=== PATIENT | female | born 1985 | race Caucasian/White ===

== ENCOUNTER → 2024-04-30 | Outpatient (CLI) | payer OTHER, MEDICAID, SELFPAY ==
[2024-04-30 10:43] LABS: Quantiferon-TB* See Sep Rpt
[2024-04-30 10:52] LABS: Collection Type, Urine Clean Catch
[2024-04-30 11:25] LABS: Basophils % (Auto) 1 % (0-2.5); Eosinophils # (Auto) 0.1 Thou/mm3 (0.0-0.5); Eosinophils % (Auto) 2 % (0-10); Hemoglobin 15.2 g/dL (12.0-16.0); Immature Granulocytes % (Auto) 1 % (0-0); Immature Granulocytes Auto 0.03 Thou/mm3 (0.00-0.00); Lymphocytes # (Auto) 1.6 Thou/mm3 (1.0-4.8); Lymphocytes % (Auto) 29 % (10-50); Mean Corpuscular HGB Conc 33.8 g/dl (31.0-37.0); Mean Corpuscular Hemoglobin 31.4 pg (25.0-35.0); Mean Corpuscular Volume 93 fL (80-100); Monocytes # (Auto) 0.3 Thou/mm3 (0.0-0.8); Monocytes % (Auto) 6 % (0-12); Neutrophils # (Auto) 3.3 Thou/mm3 (1.8-7.7); Neutrophils % (Auto) 62 % (37-80); Nucleated Red Blood Cell % 0 /100 WBC (0); Platelet Count 295 Thou/mm3 (140-440); RDW Standard Deviation 43.8 fL (36.4-46.3); Red Blood Count 4.84 Miln/mm3 (4.00-5.20); White Blood Count 5.4 Thou/mm3 (3.6-11.0)
[2024-04-30 11:44] LABS: Amorphous Crystals,Urine Present (Absent); Bacteria,Urine Rare; Bilirubin,Urine Negative (Negative); Blood,Urine Negative (Negative); Clarity,Urine Clear (Clear/Hazy); Color,Urine Lt-Yellow (Lt Yel-Yel); Glucose, Urine Negative (Negative); Ketones,Urine Negative (Negative); Leukocyte Esterase,Urine Negative (Negative); Nitrite,Urine Negative (Negative); PH,Urine 7.5 (5.0-7.0); Protein,Urine Negative (Neg - Trace); RBC,Urine 1 /hpf (0-3); Specific Gravity,Urine 1.012 (1.001-1.035); Squamous Epithelial Cell,Urine 2 /hpf (0-5); Urobilinogen,Urine Negative mg/dL (0.0-1.0); WBC,Urine < 1 /hpf (0-5)
[2024-04-30 12:13] LABS: Alanine Aminotransferase 36 U/L (10-49); Albumin, Serum 4.6 gm/dL (3.5-5.0); Alkaline Phosphatase 81 U/L (46-116); Anion Gap 9 (7-16); Aspartate Amino Transferase 20 U/L (0-34); BUN/Creatinine Ratio 13 Ratio (12-20); Bilirubin,Total 0.7 mg/dL (0.3-1.2); Blood Urea Nitrogen 10 mg/dL (9-23); C-Reactive Protein < 0.5 mg/dL (0.0-0.9); Calcium 9.8 mg/dL (8.3-10.6); Calcium (Corrected) 9.8 mg/dL (8.5-10.1); Carbon Dioxide 29.3 mMol/L (20.0-31.0); Chloride 102 mMol/L (98-107); Creatinine (Component) 0.8 mg/dL (0.6-1.3); Globulin 2.3 gm/dL (2.3-3.5); Glucose 87 mg/dL (74-106); Osmolality,Calculated 277 (275-295); Potassium 4.6 mMol/L (3.4-5.1); Sodium 140 mMol/L (136-145); Total Protein 6.9 gm/dL (5.7-8.2); eGFR > 60 See Note
[2024-04-30 12:31] LABS: Sed Rate (ESR) 2 mm/hr (0-20)
[2024-05-06 07:21] LABS: Complement Component C3* 123 mg/dL (83-193); Complement Component C4c* 24 mg/dL (15-57); DNA (ds) Antibody* 2 IU/mL
== END | disposition home or self-care (01) ==
LOC: COPL 10:26
PROVIDERS: PCP Internal Medicine; Referring Provider Internal Medicine; Visit Provider Internal Medicine
DX: M32.9 Systemic lupus erythematosus, unspecified (principal); Z11.1 Encounter for screening for respiratory tuberculosis
CPT/HCPCS: 36415; 80053; 81001; 85025; 85652; 86140; 86160; 86225; 86480

== ENCOUNTER 2024-06-18 17:25 | Emergency (ER) | payer OTHER, MEDICAID, SELFPAY ==
[2024-06-18 17:28] VITALS: BMI 31.6
[2024-06-18 17:42] VITALS: BP 113/79; PULSE 86; RESP 18; TEMP 36.9; O2SAT 99
--- NOTE | 2024-06-18 18:05 | PD.EDWOUND ---
ED Wound/Laceration-RME/HPI General Chief Complaint: Wound/Laceration Stated Complaint: laceration to finger Source: patient Arrival date/time: 06/18/24 17:25 39-year-old female with no known medical history presents to the emergency room with a chief complaint of a laceration to her left index finger. Mode of arrival: ambulatory Limitations: no limitations Related Data Home Medications ?Medication ?Instructions ?Recorded ?Confirmed cholecalciferol (vitamin D3) 125 5,000 unit PO QWEEK 04/30/18 05/01/18 mcg (5,000 unit) tablet (Vitamin D3) hydroxychloroquine 200 mg tablet 400 mg PO QDAY 04/30/18 05/01/18 (Plaquenil) metoprolol tartrate 50 mg tablet 50 mg PO QDAY 04/30/18 05/01/18 naproxen sodium 220 mg capsule 220 mg PO BID PRN Pain 05/01/18 05/01/18 (Aleve) Previous Rx's ?Medication ?Instructions ?Recorded baclofen 20 mg tablet 20 mg PO BID #30 tabs 03/18/21 naproxen 375 mg tablet 375 mg PO QAM PRN pain #60 tabs 03/18/21 Allergies Allergy/AdvReac Type Severity Reaction Status Date / Time ciprofloxacin Allergy Intermediate RASH, Verified 03/18/21 21:21 CHEST PAIN Sulfa (Sulfonamide Allergy Mild BLISTER,DIFFICULTY Verified 03/18/21 21:21 Antibiotics) BREATHING morphine Allergy Unknown Rash, Verified 03/18/21 21:21 anxiety, short of breath phentolamine Allergy increased Verified 03/18/21 21:21 heart rate sulfamethoxazole (From Allergy Rash, Verified 03/18/21 21:21 Bactrim) chest pressure, difficulty breathing trimethoprim (From Bactrim) Allergy Rash, Verified 03/18/21 21:21 chest pressure, difficulty breathing hydrocodone AdvReac Mild Vomiting Verified 03/18/21 21:21 Review of Systems Review of Systems Systems Reviewed: All systems reviewed, normal except as documented Constitutional Constitutional: Reports system reviewed and no additional complaints, except as documented, Denies fatigue, Denies fever(s), Denies headache(s) and Denies weakness Eyes Eyes: Reports system reviewed and no additional complaints, except as documented, Denies blurry vision and Denies change in vision ENT Ears, Nose, Mouth, and Throat: Reports system reviewed and no additional complaints, except as documented, Denies otalgia, Denies headache(s), Denies nasal congestion, Denies throat swelling and Denies vertigo Cardiovascular Cardiovascular: Reports system reviewed and no additional complaints, except as documented, Denies chest pain, Denies dyspnea and Denies dyspnea on exertion Respiratory Respiratory: Reports system reviewed and no additional complaints, except as documented, Denies chest congestion, Denies cough, Denies dyspnea, Denies dyspnea on exertion and Denies wheezing Gastrointestinal Gastrointestinal: Reports system reviewed and no additional complaints, except as documented, Denies abdominal pain, Denies cramping, Denies nausea and Denies vomiting Genitourinary Genitourinary: Reports system reviewed and no additional complaints, except as documented Musculoskeletal Musculoskeletal: Reports system reviewed and no additional complaints, except as documented and Denies back pain Integumentary/Breasts Skin/Breast: Reports system reviewed and no additional complaints, except as documented and Reports wounds Neurologic Neurologic: Reports system reviewed and no additional complaints, except as documented, Denies confusion, Denies headache(s), Denies lack of coordination, Denies vertigo and Denies weakness Psychiatric Psychiatric: Reports system reviewed and no additional complaints, except as documented, Denies anxiety, Denies confusion, Denies depression, Denies paranoia, Denies suicidal ideation and Denies tactile hallucinations Endocrine Endocrine: Reports system reviewed and no additional complaints, except as documented and Denies fatigue Hematologic/Lymphatic Hematologic/Lymphatic: Reports system reviewed and no additional complaints, except as documented and Denies lymphadenopathy Allergic/Immunologic Allergic/Immunologic: Reports system reviewed and no additional complaints, except as documented, Denies throat swelling, Denies urticaria and Denies wheezing ED Exam General Limitations: Present no limitations General appearance: Present alert and in no apparent distress Head Head exam: Present atraumatic Eye Eye exam: Present normal appearance, PERRL and EOMI ENT ENT exam: Present normal exam, normal oropharynx and mucous membranes moist Neck Neck exam: Present normal inspection, full ROM and trachea midline Chest Chest inspection: Present normal inspection and symmetric chest wall rise Respiratory Respiratory exam: Present normal lung sounds bilaterally Cardiovascular Cardiovascular exam: Present regular rate, normal rhythm and normal heart sounds Abdominal Exam Abdominal exam: Present soft and normal bowel sounds Extremities Exam Extremities exam: Present normal inspection and full ROM Expanded Upper Extremity Exam Shoulder exam: Present normal inspection Arm exam: Present normal inspection Elbow exam: Present normal inspection Forearm/Wrist exam: Present normal inspection Hand exam: Present tenderness, laceration and erythema Hand L/R front image:  1. laceration (2.5 cm irregular laceration to the left index finger) Back Exam Back exam: Present normal inspection and full ROM Neurological Exam Neurological exam: Present alert, oriented X3 and CN II-XII intact Psychiatric Psychiatric exam: Present normal affect and normal mood Skin Skin exam: Present warm, dry, intact and normal color Course Quality Measures none Orders Category Date Time Status Set Up Suture Tray STAT Care 06/18/24 18:05 Completed Wound Care NOW Care 06/18/24 18:05 Completed Lidocaine 1% 20 ml [Xylocaine 1% 20 ML] Med 06/18/24 18:05 Discontinued 20 ml INFL X1 ONE Vital Signs Vital signs: Vital Signs Temperature 98.5 F 06/18/24 17:42 Pulse Rate 86 06/18/24 17:42 Respiratory Rate 18 06/18/24 17:42 Blood Pressure 113/79 06/18/24 17:42 Pulse Oximetry (%) 99 06/18/24 17:42 Oxygen Delivery Method Room Air 06/18/24 17:42 O2 saturation 99% within normal limits Procedures -ED Laceration Laceration 1: Site: hand Side (If applicable): left Size (cm): 3 Description: linear, flap and irregular Depth: simple, single layer Local Anesthetic: lidocaine 1% Amount of anesthesia used (mL): 4 Pre-repair: irrigated extensively Skin layer closed with: nylon Size (cm): 5-0 Number of sutures: 5 Technique: simple, interrupted Wound / Laceration MDM Narrative MDM Narrative:: 39-year-old female with no known medical history presents to the emergency room with a chief complaint of a laceration to her left index finger. Patient is hemodynamically stable and in no apparent distress. Patient has a irregular 3 cm laceration to the left tip of her index finger. The laceration occured 1 hour ago while the patient was opening up a box. The mechanism of injury was cutting it with a box Sensation is intact. There is full ROM. There is no exposed tendons. No foreign bodies. Lidocaine 1% was used for anesthesia. The wound was irrigated extensively with normal saline. 5 sutures were placed. A dressing was placed. There were no complications. Patient was educated to keep the area clean and dry for 24 hours, then clean daily with soap and water. Patient was educated to return for any signs of infection including swelling pain redness pus or fever and to make an appointment with primary care provider in 48 hours. Patient was educated to follow up with primary or return to emergency room for suture removal in the next 7-10 days. Patient data External records reviewed:: [facility] previous records Clinical information provided by:: patient Social determinants that could affect healthcare access:: none Patient has the following chronic illnesses:: No chronic illness How is presenting disease/condition affected by chronic disease/condition?: no chronic disease Evaluation data The following diagnostics were reviewed and interpreted by me:: lab results and radiology exam(s) Lab and/or radiology exams considered but not ordered:: Labs and radiology exams considered and ordered Interpretation Summary: N/A Medications / Prescriptions Medications or Prescriptions considered but not ordered:: Medication given Medication administrations:: Medication Administration History Discontinued Medications Lidocaine HCl (Lidocaine Hcl 1% 20 Ml Vial) 20 ml INFL X1 ONE Stop: 06/18/24 18:06 Last Admin: 06/18/24 18:17 Dose: 20 ml Documented By: Medication given Consultations Consultation(s) initiated? (list below): No Diagnosis Wound Differential Diagnosis: laceration, abscess, abrasion and avulsion of skin Most likely diagnosis given after review of the tests above:: Laceration Admission Indicated Admission indicated?: not indicated Admission Request Was there a request for admission?: No Disposition Plan Disposition Plan: Discharge Discharge Attestation Discharge Attestation: The patient and all family members were given an opportunity to ask questions and understood the discharge instructions. Discharge instructions specifically effects, indications for sooner follow up or return to the emergency department, and the expected course of current diagnosis. Patient condition: Stable Discharge Plan Plan Patient Disposition: HOME (Self Care) Discharge Disposition comment: Stable Prescriptions/Referrals Prescriptions/Med Rec: No Action hydroxychloroquine [Plaquenil] 200 mg Tablet 400 mg PO QDAY cholecalciferol (vitamin D3) [Vitamin D3] 5,000 unit Tablet 5,000 unit PO QWEEK metoprolol tartrate 50 mg Tablet 50 mg PO QDAY naproxen sodium [Aleve] 220 mg Capsule 220 mg PO BID PRN (Reason: Pain) naproxen 375 mg tablet 375 mg PO QAM PRN (Reason: pain) Qty: 60 0RF baclofen 20 mg tablet 20 mg PO BID Qty: 30 0RF Referrals: Beck Upton MD [Primary Care Provider] - In 1 week Problem List Clinical Impression: Laceration Patient/Caregiver Discharge Instructions Additional Instructions: Please follow-up with your primary care provider in the next 24 to 48 hours For any evidence of worsening signs or symptoms return to the emergency room immediately Print Language: Djiboutian Stand Alone Forms: Bettye Award Info., Patient Portal Info Letter PA/WEATHERIZATION AND HOUSING INSPECTOR Supervising Physician PA/WEATHERIZATION AND HOUSING INSPECTOR Supervising Physician: Dr. Mauricio
[2024-06-18] MEDS: LIDOCAINE HCL 1% 20 ML VIAL INFL (18:17)
== END 2024-06-18 18:18 | disposition home or self-care (01) ==
PROVIDERS: Emergency Provider Podiatrist Foot & Ankle Surgery; PCP Internal Medicine
DX: S61.211A Laceration without foreign body of left index finger without damage to nail, initial encounter (principal); W45.8XXA Other foreign body or object entering through skin, initial encounter
CPT/HCPCS: 12002; 99283; J3490

== ENCOUNTER 2024-07-21 11:34 | Emergency (ER) | payer OTHER, MEDICAID, SELFPAY ==
[2024-07-21 11:35] VITALS: BMI 32.2
[2024-07-21 11:43] VITALS: BP 119/81; PULSE 102; RESP 18; TEMP 37.3; O2SAT 97
--- NOTE | 2024-07-21 11:57 | XR_ITS ---
Examination: CT abdomen and pelvis without contrast. Coronal 3-D reconstructions. Sagittal 2-D reconstructions. Date and time of exam:July 21, 2024 1320 hours Comparison February 06, 2023 INDICATIONS: Left-sided flank pain with burning sensation with urination today CTDI: vol (mGy): 10.8 DLP: (mGycm): 637 Technique: Axial images of the abdomen have been obtained, 3 mm slice thickness Intravenous contrast material has not been administered. Low dose protocols were performed. One or more of the following dose reduction techniques were used; automated exposure control, adjustment of the mA and/or KV according to patient size, use of iterative reconstruction technique. Findings: No focal liver or splenic lesions Absent gallbladder No pancreatic or adrenal mass Mild wall thickening pelvicalyceal systems and proximal ureters bilaterally, no renal or ureteral calculi, no hydronephrosis No pericecal inflammatory change No pelvic mass No bladder mass or bladder calculi Osseous structures are intact IMPRESSION: Suspicious for bilateral urinary tract infection
--- NOTE | 2024-07-21 11:59 | PD.EDABDPN ---
ED Abdominal Pain RME/HPI General Chief Complaint: Abdominal Pain Stated complaint: LEFT FLANK PAIN FOR 2 WEEKS Time seen by provider: 07/21/24 11:46 Arrival date/time: 07/21/24 11:34 Limitations: no limitations RME / HPI RME / HPI narrative: 39-year-old female here for left flank pain x 2 weeks. States thinks it might be another stone. The last time she had a scan was in 2020. States has been using oregano treatments and hydrating but not working. No fever. Feels lots of pressure on her abdomen that radiates up to her left flank. Multiple drug allergies including ciprofloxacin and Bactrim. No visible clots or hematuria. Some nausea no diarrhea. No history of diabetes hypertension or otherwise immunocompromised state Related Data Home Medications ?Medication ?Instructions ?Recorded ?Confirmed cholecalciferol (vitamin D3) 125 5,000 unit PO QWEEK 04/30/18 05/01/18 mcg (5,000 unit) tablet (Vitamin D3) hydroxychloroquine 200 mg tablet 400 mg PO QDAY 04/30/18 05/01/18 (Plaquenil) metoprolol tartrate 50 mg tablet 50 mg PO QDAY 04/30/18 05/01/18 naproxen sodium 220 mg capsule 220 mg PO BID PRN Pain 05/01/18 05/01/18 (Aleve) Previous Rx's ?Medication ?Instructions ?Recorded baclofen 20 mg tablet 20 mg PO BID #30 tabs 03/18/21 naproxen 375 mg tablet 375 mg PO QAM PRN pain #60 tabs 03/18/21 hydrocodone 5 mg-acetaminophen 325 1 tab PO BID PRN pain 7 days #14 07/21/24 mg tablet tabs nitrofurantoin macrocrystal 100 mg 100 mg PO Q12H #14 caps 07/21/24 capsule Allergies Allergy/AdvReac Type Severity Reaction Status Date / Time ciprofloxacin Allergy Severe RASH, Verified 07/21/24 11:38 CHEST PAIN morphine Allergy Severe Rash, Verified 07/21/24 11:38 anxiety, short of breath phentolamine Allergy Severe increased Verified 07/21/24 11:38 heart rate sulfamethoxazole (From Allergy Severe Rash, Verified 07/21/24 11:38 Bactrim) chest pressure, difficulty breathing trimethoprim (From Bactrim) Allergy Severe Rash, Verified 07/21/24 11:38 chest pressure, difficulty breathing hydrocodone AdvReac Severe Vomiting Verified 07/21/24 11:38 Review of Systems Review of Systems Systems Reviewed: All systems reviewed, normal except as documented Constitutional Constitutional: Reports chills and Denies fever(s) Cardiovascular Cardiovascular: Denies chest pain and Denies dyspnea Respiratory Respiratory: Denies dyspnea Gastrointestinal Gastrointestinal: Reports as per HPI Genitourinary Genitourinary: Reports as per HPI ED Exam General Limitations: Present no limitations General appearance: Present alert and in no apparent distress Eye Eye exam: Present normal appearance, PERRL and EOMI Respiratory Respiratory exam: Present normal lung sounds bilaterally Cardiovascular Cardiovascular exam: Present regular rate, normal rhythm and normal heart sounds Abdominal Exam Abdominal exam: Present soft, tenderness (Suprapubic TTP, left CVAT) and normal bowel sounds Extremities Exam Extremities exam: Present normal inspection and full ROM Back Exam Back exam: Present normal inspection and full ROM Psychiatric Psychiatric exam: Present normal affect and normal mood Skin Skin exam: Present warm, dry, intact and normal color Course Course Course Narrative: Patient remained stable throughout her stay pain was controlled with 1 dose of Toradol. Agreed to IM Rocephin. However for home given degree of pain sent home on [place] listed as causing nausea but has nausea medication at home, not a true drug allergy Quality Measures none Orders Category Date Time Status CT abdomen pelvis wo con Stat Exams 07/21/24 11:57 Completed CBC Stat Lab 07/21/24 12:08 Completed CMP [Comprehensive Metabolic Panel] Stat Lab 07/21/24 12:08 Completed HCG,Qualitative Serum Stat Lab 07/21/24 12:08 Completed Lipase Stat Lab 07/21/24 12:08 Completed UA [Urinalysis] Stat Lab 07/21/24 12:34 Completed Ketorolac Inj [Toradol Inj] Med 07/21/24 11:57 Discontinued 30 mg IVP X1 ONE Sodium Chloride 0.9% 1000 ml [Ns] 1,000 ml Med 07/21/24 11:57 Discontinued IV 999 mls/hr [id number] [Rocephin] 1,000 mg Med 07/21/24 14:28 Discontinued Lidocaine 1% 20 ml [Xylocaine 1% 20 ML] 2.1 ml IM X1 Vital Signs Vital signs: Vital Signs Temperature 99.1 F 07/21/24 11:43 Pulse Rate 102 H 07/21/24 11:43 Respiratory Rate 18 07/21/24 11:43 Blood Pressure 119/81 07/21/24 11:43 Pulse Oximetry (%) 97 07/21/24 11:43 Oxygen Delivery Method Room Air 07/21/24 11:43 Abdominal Pain MDM MDM Narrative MDM Narrative:: 39-year-old patient worked up for possible new kidney stones. However workup showed UTI CT was normal without stones. Given degree of pain and radiating to the flank diagnosed as pyelonephritis. Advise follow-up with PCP return to ER symptoms worsen Patient data External records reviewed:: [facility] previous records Clinical information provided by:: patient Social determinants that could affect healthcare access:: other (specify) (Working long hours difficult to follow-up with PCP) Patient has the following chronic illnesses:: Kidney stones How is presenting disease/condition affected by chronic disease/condition?: exacerbated by Evaluation data The following diagnostics were reviewed and interpreted by me:: lab results and radiology exam(s) Lab and/or radiology exams considered but not ordered:: All imaging considered was ordered Interpretation Summary: CBC CMP within normal limits UA shows signs of UTI, CT scan without stones but confirmed UTI Medications / Prescriptions Medications or Prescriptions considered but not ordered:: All medications considered were given other than Pyridium, patient has other medications at home to help with urgency Medication administrations:: Medication Administration History Discontinued Medications Ceftriaxone Sodium 1,000 mg/ (Lidocaine HCl 2.1 ml) 0 mg IM X1 ONE Stop: 07/21/24 14:29 Last Admin: 07/21/24 14:43 Dose: 1,000 mg Documented By: Sodium Chloride (Ns) 1,000 mls @ 999 mls/hr IV .Q1H1M ONE Stop: 07/21/24 12:57 Last Infusion: 07/21/24 14:24 Dose: Infused Documented By: Admin: 07/21/24 12:51 Dose: 999 mls/hr Documented By: AKASH Ketorolac Tromethamine (Ketorolac Inj 30 Mg/Ml Vial) 30 mg IVP X1 ONE Stop: 07/21/24 11:58 Last Admin: 07/21/24 12:50 Dose: 30 mg Documented By: AKASH See above prescription for Macrobid and [place] sent to Consultations Consultation(s) initiated? (list below): No Diagnosis Differential diagnosis abdominal pain: abdominal pain, calculus of kidney, pancreatitis and other (UTI, pyelonephritis) Most likely diagnosis given after review of the tests above:: Pyelonephritis History of kidney stones Admission Indicated Admission indicated?: not indicated Admission Request Was there a request for admission?: No Disposition Plan Disposition Plan: Discharge Discharge Attestation Discharge Attestation: The patient and all family members were given an opportunity to ask questions and understood the discharge instructions. Discharge instructions specifically effects, indications for sooner follow up or return to the emergency department, and the expected course of current diagnosis. Patient condition: Stable Discharge Plan Plan Patient Disposition: HOME (Self Care) Discharge Disposition comment: f/u with pcp in 2-3days Prescriptions/Referrals Prescriptions/Med Rec: New hydrocodone-acetaminophen 5-325 mg tablet 1 tab PO BID MDD 2 PRN (Reason: pain) 7 Days Qty: 14 0RF nitrofurantoin macrocrystal 100 mg capsule 100 mg PO Q12H Qty: 14 0RF Rx Instructions: must administer with a meal/food No Action hydroxychloroquine [Plaquenil] 200 mg Tablet 400 mg PO QDAY cholecalciferol (vitamin D3) [Vitamin D3] 5,000 unit Tablet 5,000 unit PO QWEEK metoprolol tartrate 50 mg Tablet 50 mg PO QDAY naproxen sodium [Aleve] 220 mg Capsule 220 mg PO BID PRN (Reason: Pain) naproxen 375 mg tablet 375 mg PO QAM PRN (Reason: pain) Qty: 60 0RF baclofen 20 mg tablet 20 mg PO BID Qty: 30 0RF Referrals: Beck Upton MD [Primary Care Provider] - In 1 week Problem List Clinical Impression: Pyelonephritis, Abdominal wall pain in left flank Patient/Caregiver Discharge Instructions Education Materials: ED Pyelonephritis, Female (Adult) Print Language: Gabonese Stand Alone Forms: Bettye Award Info., Patient Portal Info Letter PA/RUBBER AND PLASTICS WORKER Supervising Physician PA/RUBBER AND PLASTICS WORKER Supervising Physician: Dr. Mauricio
[2024-07-21 12:22] LABS: Basophils % (Auto) 0 % (0-2.5); Eosinophils % (Auto) 0 % (0-10); Hematocrit 43.8 % (36.0-46.0); Hemoglobin 15.2 g/dL (12.0-16.0); Immature Granulocytes % (Auto) 1 % (0-0); Immature Granulocytes Auto 0.05 Thou/mm3 (0.00-0.00); Lymphocytes # (Auto) 0.7 Thou/mm3 (1.0-4.8); Lymphocytes % (Auto) 7 % (10-50); Mean Corpuscular HGB Conc 34.7 g/dl (31.0-37.0); Mean Corpuscular Hemoglobin 30.7 pg (25.0-35.0); Mean Corpuscular Volume 89 fL (80-100); Monocytes # (Auto) 0.7 Thou/mm3 (0.0-0.8); Monocytes % (Auto) 7 % (0-12); Neutrophils # (Auto) 8.5 Thou/mm3 (1.8-7.7); Neutrophils % (Auto) 85 % (37-80); Nucleated Red Blood Cell % 0 /100 WBC (0); Platelet Count 238 Thou/mm3 (140-440); RDW Standard Deviation 38.7 fL (36.4-46.3); Red Blood Count 4.95 Miln/mm3 (4.00-5.20)
[2024-07-21 12:35] LABS: HCG,Qualitative Serum Negative
[2024-07-21 12:40] LABS: Collection Type, Urine Clean Catch
[2024-07-21 12:47] LABS: Alanine Aminotransferase 22 U/L (10-49); Albumin, Serum 4.8 gm/dL (3.5-5.0); Albumin/Globulin Ratio 2.1 (1.2-2.2); Alkaline Phosphatase 94 U/L (46-116); Anion Gap 9 (7-16); BUN/Creatinine Ratio 8 Ratio (12-20); Bilirubin,Total 0.8 mg/dL (0.3-1.2); Blood Urea Nitrogen 7 mg/dL (9-23); Calcium 9.6 mg/dL (8.3-10.6); Calcium (Corrected) 9.6 mg/dL (8.5-10.1); Carbon Dioxide 28.3 mMol/L (20.0-31.0); Chloride 101 mMol/L (98-107); Creatinine (Component) 0.9 mg/dL (0.6-1.3); Estimated Creatinine Clearance 88.7 mL/min (>60); Globulin 2.3 gm/dL (2.3-3.5); Glucose 102 mg/dL (74-106); Lipase 29 U/L (12-53); Osmolality,Calculated 273 (275-295); Potassium 4.5 mMol/L (3.4-5.1); Sodium 138 mMol/L (136-145); Total Protein 7.1 gm/dL (5.7-8.2); eGFR > 60 See Note
[2024-07-21 12:50] LABS: Bacteria,Urine Rare; Bilirubin,Urine Negative (Negative); Blood,Urine 1+ (Negative); Color,Urine Yellow (Lt Yel-Yel); Glucose, Urine Negative (Negative); Ketones,Urine Negative (Negative); Leukocyte Esterase,Urine Positive (Negative); Nitrite,Urine Negative (Negative); PH,Urine 6.5 (5.0-7.0); Protein,Urine Trace (Neg - Trace); RBC,Urine 3 /hpf (0-3); Squamous Epithelial Cell,Urine 3 /hpf (0-5); Urobilinogen,Urine Negative mg/dL (0.0-1.0); WBC,Urine 1269 /hpf (0-5)
[2024-07-21] MEDS: KETOROLAC INJ 30 MG/ML VIAL IVP (12:50)
[2024-07-21] MEDS: SODIUM CHLORIDE 0.9% 1000 ML 1,000 ML 999 ML IV (12:51)
[2024-07-21 12:57] LABS: Clarity,Urine Hazy (Clear/Hazy)
[2024-07-21] MEDS: cefTRIAXone 1,000 MG, LIDOCAINE 1% 20 ML 2.1 ML IM (14:43)
== END 2024-07-21 15:21 | disposition home or self-care (01) ==
PROVIDERS: Physician Assistant; Emergency Provider Family Medicine; PCP Internal Medicine
DX: N12 Tubulo-interstitial nephritis, not specified as acute or chronic (principal)
CPT/HCPCS: 36415; 74176; 80053; 81001; 83690; 84703; 85025; 96361; 96372; 96374; J0696; J1885; J3490; J7030

== ENCOUNTER → 2025-01-06 | Outpatient (CLI) | payer OTHER, MEDICAID, SELFPAY ==
[2025-01-06 10:52] LABS: Collection Type, Urine Clean Catch
[2025-01-06 11:25] LABS: Bilirubin,Urine Negative (Negative); Blood,Urine Negative (Negative); Clarity,Urine Clear (Clear/Hazy); Color,Urine Lt-Yellow (Lt Yel-Yel); Culture Indicated,Urine Not Indicated; Glucose, Urine Negative (Negative); Ketones,Urine Negative (Negative); Leukocyte Esterase,Urine Negative (Negative); Nitrite,Urine Negative (Negative); PH,Urine 6.5 (5.0-7.0); Protein,Urine Trace (Neg - Trace); RBC,Urine 1 /hpf (0-3); Specific Gravity,Urine 1.022 (1.001-1.035); Squamous Epithelial Cell,Urine < 1 /hpf (0-5); Urobilinogen,Urine Negative mg/dL (0.0-1.0); WBC,Urine 1 /hpf (0-5)
[2025-01-06 11:41] LABS: Follicle Stimulating Hormone 9.07 mIU/mL (See Note); Vitamin B12 704 pg/mL (211-911); Vitamin D 25 Hydroxy Total 29.9 ng/mL (7.3-40.2)
[2025-01-06 11:44] LABS: Sed Rate (ESR) 1 mm/hr (0-20)
[2025-01-06 11:46] LABS: Basophils # (Auto) 0.0 Thou/mm3 (0.0-0.2); Basophils % (Auto) 1 % (0-2.5); Eosinophils # (Auto) 0.1 Thou/mm3 (0.0-0.5); Eosinophils % (Auto) 3 % (0-10); Hematocrit 43.6 % (36.0-46.0); Hemoglobin 14.5 g/dL (12.0-16.0); Immature Granulocytes Auto 0.01 Thou/mm3 (0.00-0.00); Lymphocytes # (Auto) 1.1 Thou/mm3 (1.0-4.8); Lymphocytes % (Auto) 26 % (10-50); Mean Corpuscular HGB Conc 33.3 g/dl (31.0-37.0); Mean Corpuscular Hemoglobin 31.3 pg (25.0-35.0); Mean Corpuscular Volume 94 fL (80-100); Monocytes # (Auto) 0.2 Thou/mm3 (0.0-0.8); Monocytes % (Auto) 5 % (0-12); Neutrophils # (Auto) 2.7 Thou/mm3 (1.8-7.7); Neutrophils % (Auto) 65 % (37-80); Nucleated Red Blood Cell # 0.00 Thou/mm3 (0.00-0.00); Nucleated Red Blood Cell % 0 /100 WBC (0); Platelet Count 281 Thou/mm3 (140-440); RDW Standard Deviation 43.2 fL (36.4-46.3); Red Blood Count 4.64 Miln/mm3 (4.00-5.20); White Blood Count 4.2 Thou/mm3 (3.6-11.0)
[2025-01-06 11:54] LABS: Alanine Aminotransferase 26 U/L (10-49); Albumin, Serum 5.0 gm/dL (3.5-5.0); Albumin/Globulin Ratio 2.4 (1.2-2.2); Alkaline Phosphatase 73 U/L (46-116); Anion Gap 8 (7-16); Aspartate Amino Transferase 25 U/L (0-34); BUN/Creatinine Ratio 11 Ratio (12-20); Bilirubin,Total 0.5 mg/dL (0.3-1.2); Blood Urea Nitrogen 9 mg/dL (9-23); C-Reactive Protein < 0.5 mg/dL (0.0-0.9); Calcium 9.6 mg/dL (8.3-10.6); Calcium (Corrected) 9.6 mg/dL (8.5-10.1); Carbon Dioxide 29.3 mMol/L (20.0-31.0); Cardiac Risk Estimate 4.2 RATIO (3.7-5.6); Chloride 105 mMol/L (98-107); Cholesterol 241 mg/dL (132-200); Creatinine (Component) 0.8 mg/dL (0.6-1.3); Globulin 2.1 gm/dL (2.3-3.5); Glucose 78 mg/dL (74-106); HDL Cholesterol 58 mg/dL (40-60); LDL Cholesterol,Calculated 156 mg/dL (0-130); Osmolality,Calculated 280 (275-295); Potassium 4.2 mMol/L (3.4-5.1); Sodium 142 mMol/L (136-145); Thyroid Stimulating Hormone 1.79 uIU/mL (0.55-4.78); Total Protein 7.1 gm/dL (5.7-8.2); Triglycerides 134 mg/dL (30-150); eGFR > 60 See Note
[2025-01-06 12:00] LABS: Glucose Estimated Average 94 mg/dL (80-131); Hemoglobin A1C 4.9 % Hgb (4.8-6.0)
[2025-01-06 12:09] LABS: Ferritin 47 ng/mL (7.3-270.7)
[2025-01-15 06:17] LABS: Complement Component C3* 121 mg/dL (83-193); Complement Component C4c* 22 mg/dL (15-57); DNA (ds) Antibody* 3 IU/mL
[2025-01-15 06:18] LABS: DHEA Sulfate* 147 mcg/dL (23-266); Estrogen, Total, Serum* 106 pg/mL; Luteinizing Hormone* 4.7 mIU/mL; Progesterone,LC/MS* <0.1 ng/mL; Testosterone,Total* 24 ng/dL (2-45)
== END | disposition home or self-care (01) ==
PROVIDERS: PCP Internal Medicine; Referring Provider Internal Medicine; Visit Provider Internal Medicine
DX: Z00.00 Encounter for general adult medical examination without abnormal findings (principal); E28.310 Symptomatic premature menopause; E55.9 Vitamin D deficiency, unspecified; F34.1 Dysthymic disorder; G43.009 Migraine without aura, not intractable, without status migrainosus; M32.9 Systemic lupus erythematosus, unspecified; M77.11 Lateral epicondylitis, right elbow; R00.0 Tachycardia, unspecified; Z79.899 Other long term (current) drug therapy
CPT/HCPCS: 36415; 80053; 80061; 81001; 82306; 82607; 82627; 82672; 82728; 83001; 83002; 83036; 84144; 84403; 84443; 85025; 85652; 86140; 86160; 86225